=== PATIENT | male | born 1985 | race Two or more races ===

== ENCOUNTER 2018-12-21 02:40 | Inpatient (IN) | payer OTHER ==
[~2018-12-21] VITALS: Ht 170.2 cm; Wt 124.7 kg
[2018-12-21] MEDS ORDERED: ATEN25TA PO (02:50)
--- NOTE | 2018-12-21 03:07 | NUR ---
DR. COOPER AT BEDSIDE FOR MSE.
[2018-12-21 03:43] LABS: BASOPHILS # (AUTO) 0.2 K/uL (0.0-8.0); BASOPHILS % (AUTO) 1.1 % (0.0-2.0); EOSINOPHILS # (AUTO) 0.1 K/uL (0.0-0.7); EOSINOPHILS % (AUTO) 0.8 % (0.0-7.0); HEMATOCRIT 38.2 % (36.7-47.1); HEMOGLOBIN 13.4 g/dL (12.5-16.3); LYMPHOCYTES # (AUTO) 2.4 K/uL (20.0-40.0); LYMPHOCYTES % (AUTO) 16.1 % (20.5-51.5); MEAN CORPUSCULAR HEMOGLOBIN 35.8 uug (23.8-33.4); MEAN CORPUSCULAR HGB CONC 35 g/dL (32.5-36.3); MEAN CORPUSCULAR VOLUME 102.5 fL (73.0-96.2); MONOCYTES # (AUTO) 1.6 K/uL (2.0-10.0); MONOCYTES % (AUTO) 10.4 % (0.0-11.0); NEUTROPHILS # (AUTO) 10.7 K/uL (1.8-8.9); NEUTROPHILS % (AUTO) 71.6 % (38.5-71.5); PLATELET COUNT (AUTO) 144 K/uL (152-348); RED BLOOD CELL COUNT(AUTO) 3.73 MIL/uL (4.06-5.63); WHITE BLOOD COUNT (AUTO) 14.9 K/uL (3.6-10.2)
[2018-12-21 03:51] LABS: POTASSIUM 4.6 mmol/L (3.5-5.1)
[2018-12-21 03:57] LABS: BILIRUBIN,DIRECT 0.8 mg/dL (0.0-0.2); BILIRUBIN,TOTAL 2.3 mg/dL (0.2-1.0); TOTAL PROTEIN, SERUM 7.8 g/dL (6.4-8.2)
[2018-12-21 03:57] LABS: *OCCULT BLOOD STOOL POSITIVE (NEGATIVE)
--- NOTE | 2018-12-21 03:59 | NUR ---
Dr. Hurst () paged at this time, awaiting call back. Addendum: 12/21/18 at [id number] Zimmer
--- NOTE | 2018-12-21 04:32 | NUR ---
Called epic, will page Dr. Natali HOGAN) again. Addendum: 12/21/18 at [id number] Zimmer
--- NOTE | 2018-12-21 04:55 | NUR ---
Artur called, Andres Lima was paged.
--- NOTE | 2018-12-21 05:15 | NUR ---
Andres Lima is speaking with Dr. Bello at this time, will try and get a hold of GI.
--- NOTE | 2018-12-21 06:26 | NUR ---
Called [facility], GI bone tender was paged.
[2018-12-21] MEDS ORDERED: PANTOPRAZOLE SODIUM IV 80 MG in IV DEXTROSE 5% 100 ML IV ONE (06:30)
[2018-12-21] MEDS ORDERED: PANTOPRAZOLE SODIUM 40 MG VIAL ONE ×2 (06:38→06:55)
[2018-12-21] MEDS ORDERED: PANTOPRAZOLE SODIUM IV 80 MG in IV DEXTROSE 5% 500 ML IV ONE (06:45)
[2018-12-21] MEDS ORDERED: PIPERACILLIN SODIUM/TAZOBACTAM 3.375 G in IV DEXTROSE 5% 50 ML IV ONE (07:00)
[2018-12-21] MEDS ORDERED: PIPERACILLIN/TAZOBACTAM/D5W 50 ML IV ONE (07:00)
--- NOTE | 2018-12-21 07:02 | NUR ---
report given to NUVIA Livingston
--- NOTE | 2018-12-21 07:22 | NUR ---
PATIENT IS AWAKE, ALERT, ORIENTED X4 IN NO DISTRESS.
[2018-12-21] MEDS ORDERED: IV NS 1000 ML 1,000 ML IV ONE (08:30)
[2018-12-21] MEDS ORDERED: ONDANSETRON 4 MG/2 ML VIAL IV ONE ×2 (09:00→11:56)
[2018-12-21] MEDS ORDERED: ONDANSETRON 4 MG/2 ML VIAL ONE (09:02)
--- NOTE | 2018-12-21 09:20 | NUR ---
BENITA RIOS AND DR CHAUDHARI NOTIFIED OF LACTIC ACID VALUE.
[2018-12-21] MEDS ORDERED: ACETAMINOPHEN 325 MG TABLET PO PRN (09:30)
[2018-12-21] MEDS ORDERED: Z GUARD REMEDY PASTE 57 GM TUBE TOP PRN (09:30)
[2018-12-21] MEDS ORDERED: MORPHINE SULFATE 2 MG/1 ML DISP.SYRIN IV PRN (09:30)
[2018-12-21] MEDS ORDERED: ONDANSETRON 4 MG/2 ML VIAL IV PRN (09:30)
[2018-12-21] MEDS ORDERED: MIDAZOLAM HCL 2 MG/2 ML VIAL ONE (09:37)
[2018-12-21] MEDS ORDERED: FENTANYL CITRATE 100 MCG/2 ML AMPUL ONE (09:38)
[2018-12-21] MEDS ORDERED: SUCCINYLCHOLINE CHLORIDE 200 MG/10 ML VIAL ONE (09:38)
[2018-12-21 09:45] VITALS: BP 146/81
[2018-12-21] MEDS: LORAZEPAM 2 MG/1 ML VIAL IV PRN ×2 (10:38→21:27)
--- NOTE | 2018-12-21 10:45 | NUR ---
Received pt. alert oriented x4 resting in bed. Pt.denies SOB/ difficulty breathing. Pt. denies pain or discomfort. IV in R AC 20 gauge intact patent hep lock. Safety measures in place. Ativan given per request of pt. for anxiety. Pt. to be taken downstairs by 2 nurses in [facility] for EGD by Dr. Zimmer. Pt. signed consent form. Will await return of pt.
[2018-12-21] MEDS ORDERED: METOCLOPRAMIDE HCL 10 MG/2 ML VIAL IV ONE (11:56)
[2018-12-21] MEDS ORDERED: PROPOFOL 200 MG/20 ML BOTTLE IV ONE (11:56)
[2018-12-21] MEDS ORDERED: SEVOFLURANE 250 ML BOTTLE IH ONE (11:56)
[2018-12-21] MEDS ORDERED: SUCCINYLCHOLINE CHLORIDE 200 MG/10 ML VIAL IV ONE (11:56)
[2018-12-21] MEDS ORDERED: LIDOCAINE-MPF 2% 5 ML VIAL IJ ONE (11:56)
[2018-12-21] MEDS: IV NS 1000 ML 1,000 ML IV PRN ×2 (13:48→21:01)
[2018-12-21] MEDS ORDERED: PIPERACILLIN SODIUM/TAZOBACTAM 3.375 G in IV DEXTROSE 5% 50 ML IV SCH (14:00)
[2018-12-21] MEDS ORDERED: PIPERACILLIN/TAZOBACTAM/D5W 3.375 G in IV DEXTROSE 5% 50 ML IV SCH (14:00)
--- NOTE | 2018-12-21 15:04 | NUR ---
Critical lab value for lactic acid 3.2. Dr. Gallo aware of critical lab value with no further orders. Will continue to monitor pt.
[2018-12-21 15:57] VITALS: BP 149/86
[2018-12-21] MEDS: ATENOLOL 25 MG TABLET PO SCH (16:37)
[2018-12-21] MEDS ORDERED: ZOLPIDEM 5 MG TABLET PO PRN (19:00)
[2018-12-21 20:02] VITALS: BP 144/77
[2018-12-21] MEDS: PANTOPRAZOLE SODIUM 40 MG VIAL IV SCH (20:32)
[2018-12-21] MEDS ORDERED: PANTOPRAZOLE SODIUM 40 MG VIAL IV SCH (21:00)
[2018-12-21] MEDS: PIPERACILLIN/TAZOBACTAM/D5W 3.375 G in IV DEXTROSE 5% 50 ML IV SCH (21:01)
[2018-12-22] MEDS: IV NS 1000 ML 1,000 ML IV PRN ×4 (01:10→21:27)
[2018-12-22 06:21] LABS: BASOPHILS # (AUTO) 0.1 K/uL (0.0-8.0); BASOPHILS % (AUTO) 0.8 % (0.0-2.0); EOSINOPHILS # (AUTO) 0.2 K/uL (0.0-0.7); EOSINOPHILS % (AUTO) 1.4 % (0.0-7.0); HEMATOCRIT 29.2 % (36.7-47.1); HEMOGLOBIN 10.1 g/dL (12.5-16.3); LYMPHOCYTES # (AUTO) 3.3 K/uL (20.0-40.0); LYMPHOCYTES % (AUTO) 24.2 % (20.5-51.5); MEAN CORPUSCULAR HEMOGLOBIN 35.8 uug (23.8-33.4); MEAN CORPUSCULAR HGB CONC 35 g/dL (32.5-36.3); MEAN CORPUSCULAR VOLUME 103.3 fL (73.0-96.2); MONOCYTES # (AUTO) 1.5 K/uL (2.0-10.0); MONOCYTES % (AUTO) 11.2 % (0.0-11.0); NEUTROPHILS # (AUTO) 8.6 K/uL (1.8-8.9); NEUTROPHILS % (AUTO) 62.4 % (38.5-71.5); PLATELET COUNT (AUTO) 110 K/uL (152-348); RED BLOOD CELL COUNT(AUTO) 2.83 MIL/uL (4.06-5.63); WHITE BLOOD COUNT (AUTO) 13.7 K/uL (3.6-10.2)
[2018-12-22 06:37] LABS: CREATININE 1.1 mg/dL (0.6-1.3); MAGNESIUM 1.7 mg/dL (1.8-2.4); PHOSPHOROUS 3.1 mg/dL (2.5-4.9); POTASSIUM 4.1 mmol/L (3.5-5.1)
[2018-12-22] MEDS: PIPERACILLIN/TAZOBACTAM/D5W 3.375 G in IV DEXTROSE 5% 50 ML IV SCH (06:51)
--- NOTE | 2018-12-22 07:35 | NUR ---
patient received lying in bed with mother at bedside. v/s stable and no signs of acute distress throughout shift. c/o of anxiety and insomnia, Ativan and Ambien administered, patient tolerated well. will continue to monitor and endorse care accordingly to morning nurse.
[2018-12-22 07:43] VITALS: BP 146/68
--- NOTE | 2018-12-22 07:44 | NUR ---
received pt. resting in bed alert oriented x4 with mother at bedside. Pt. denies pain or discomfort. Pt. denies SOB or difficulty breathing. Vital signs stable. IV antibiotics and IV fluids running. Pt. abdomen non tender to touch. Pt. states he has been passing gas. IV in R AC 20 gauge intact patent. Safety measures in place. Call light within reach. Will continue to monitor pt. and update pt. on plan of care.
[2018-12-22] MEDS: ATENOLOL 25 MG TABLET PO SCH ×2 (08:00→16:51)
[2018-12-22] MEDS ORDERED: MAGNESIUM SULFATE/D5W 100 ML IV SCH (08:30)
[2018-12-22] MEDS: MULTIVITAMINS,THERAPEUTIC TABLET PO SCH (09:11)
[2018-12-22] MEDS: THIAMINE HCL 100 MG TABLET PO SCH (09:11)
[2018-12-22] MEDS: FOLIC ACID 1 MG TABLET PO SCH (09:11)
[2018-12-22] MEDS: OCTREOTIDE ACETATE DRIP 1,250 MCG in IV NORMAL SALINE 247.5 ML IV PRN (10:22)
[2018-12-22] MEDS: PANTOPRAZOLE SODIUM 40 MG VIAL IV SCH ×2 (10:22→21:24)
[2018-12-22 10:34] VITALS: BP 121/81
[2018-12-22] MEDS ORDERED: CEFTRIAXONE 1 G in IV DEXTROSE 5% 50 ML IV SCH (14:00)
[2018-12-22] MEDS: CEFTRIAXONE 2 G in IV DEXTROSE 5% 100 ML IV SCH (15:06)
[2018-12-22 15:19] VITALS: BP 131/75
--- NOTE | 2018-12-22 18:38 | NUR ---
pt. resting in bed alert oriented x4. Pt. ambulated around unit to aid in passing gas. Pt. denies pain but feels as if he needs to burp. Pt. denies SOB or difficulty breathing. Vital signs stable. New IV in L hand 20 gauge intact patent running fluids as previous IV was removed by accident by pt. Pt. abdomen non tender to touch. Pt. states he has been passing gas. Safety measures in place. Call light within reach. Will continue to monitor pt. and endorse to PM nurse
[2018-12-22 19:30] VITALS: BP 128/60
[2018-12-22] MEDS: LORAZEPAM 2 MG/1 ML VIAL IV PRN (21:25)
[2018-12-23 05:05] VITALS: BP 109/56
--- NOTE | 2018-12-23 05:07 | NUR ---
patient received lying in bed. a/o x4. v/s and no signs of acute distress throughout shift. c/o of anxiety and administered Ativan once. patient denies pain. safety and comfort measures provided at all times. will continue plan of care and endorse to morning shift.
[2018-12-23 06:23] LABS: BASOPHILS # (AUTO) 0.1 K/uL (0.0-8.0); EOSINOPHILS # (AUTO) 0.5 K/uL (0.0-0.7); EOSINOPHILS % (AUTO) 4.3 % (0.0-7.0); HEMATOCRIT 26.2 % (36.7-47.1); HEMOGLOBIN 9.1 g/dL (12.5-16.3); LYMPHOCYTES # (AUTO) 2.7 K/uL (20.0-40.0); LYMPHOCYTES % (AUTO) 24.2 % (20.5-51.5); MEAN CORPUSCULAR HGB CONC 35 g/dL (32.5-36.3); MEAN CORPUSCULAR VOLUME 106.2 fL (73.0-96.2); MONOCYTES # (AUTO) 1.2 K/uL (2.0-10.0); MONOCYTES % (AUTO) 10.8 % (0.0-11.0); NEUTROPHILS # (AUTO) 6.7 K/uL (1.8-8.9); NEUTROPHILS % (AUTO) 59.7 % (38.5-71.5); PLATELET COUNT (AUTO) 95 K/uL (152-348); WHITE BLOOD COUNT (AUTO) 11.2 K/uL (3.6-10.2)
[2018-12-23 06:36] LABS: RED BLOOD CELL COUNT(AUTO) 2.46 MIL/uL (4.06-5.63)
[2018-12-23 07:13] LABS: BILIRUBIN,TOTAL 1.1 mg/dL (0.2-1.0); MAGNESIUM 1.9 mg/dL (1.8-2.4); POTASSIUM 3.7 mmol/L (3.5-5.1); TOTAL PROTEIN, SERUM 5.8 g/dL (6.4-8.2)
[2018-12-23 07:14] LABS: EOSINOPHILS % (MANUAL) 6 % (0-8); LYMPHOCYTES % (MANUAL) 26 % (20-40); MONOCYTES % (MANUAL) 9 % (2-10); NEUTROPHILS % (MANUAL) 59 % (42-75)
--- NOTE | 2018-12-23 07:58 | NUR ---
received pt. resting in bed alert oriented x4. Pt. denies pain or discomfort. Pt. denies SOB or difficulty breathing. Vital signs stable. Pt. abdomen non tender to touch. IV in L hand 20 gauge intact patent. Safety measures in place. Call light within reach. Will continue to monitor pt. and update pt. on plan of care.
[2018-12-23] MEDS: ATENOLOL 25 MG TABLET PO SCH ×2 (08:35→16:58)
[2018-12-23] MEDS: THIAMINE HCL 100 MG TABLET PO SCH (08:35)
[2018-12-23] MEDS: MULTIVITAMINS,THERAPEUTIC TABLET PO SCH (08:35)
[2018-12-23] MEDS: OCTREOTIDE ACETATE DRIP 1,250 MCG in IV NORMAL SALINE 247.5 ML IV PRN (08:35)
[2018-12-23] MEDS: FOLIC ACID 1 MG TABLET PO SCH (08:35)
[2018-12-23 11:27] VITALS: BP 123/73
[2018-12-23] MEDS: PANTOPRAZOLE SODIUM 40 MG VIAL IV SCH ×2 (12:39→21:23)
[2018-12-23] MEDS: CEFTRIAXONE 2 G in IV DEXTROSE 5% 100 ML IV SCH (13:23)
[2018-12-23 15:23] VITALS: BP 121/77
[2018-12-23 20:00] VITALS: BP 137/78
[2018-12-23] MEDS: LORAZEPAM 2 MG/1 ML VIAL IV PRN (21:23)
[2018-12-24 04:55] VITALS: BP 111/62
[2018-12-24 08:00] VITALS: BP 125/80
[2018-12-24] MEDS: OCTREOTIDE ACETATE DRIP 1,250 MCG in IV NORMAL SALINE 247.5 ML IV PRN (08:31)
[2018-12-24] MEDS: THIAMINE HCL 100 MG TABLET PO SCH (08:58)
[2018-12-24] MEDS: MULTIVITAMINS,THERAPEUTIC TABLET PO SCH (08:58)
[2018-12-24] MEDS: FOLIC ACID 1 MG TABLET PO SCH (08:58)
[2018-12-24] MEDS: ATENOLOL 25 MG TABLET PO SCH (09:02)
[2018-12-24 10:21] LABS: EOSINOPHILS # (AUTO) 0.4 K/uL (0.0-0.7); HEMATOCRIT 26.4 % (36.7-47.1); HEMOGLOBIN 9.3 g/dL (12.5-16.3); LYMPHOCYTES # (AUTO) 1.6 K/uL (20.0-40.0); MONOCYTES # (AUTO) 0.8 K/uL (2.0-10.0)
[2018-12-24 10:37] LABS: BASOPHILS # (AUTO) 0.1 K/uL (0.0-8.0); EOSINOPHILS % (AUTO) 4.7 % (0.0-7.0); LYMPHOCYTES % (AUTO) 20.6 % (20.5-51.5); MEAN CORPUSCULAR HEMOGLOBIN 37.1 uug (23.8-33.4); MEAN CORPUSCULAR HGB CONC 35 g/dL (32.5-36.3); MEAN CORPUSCULAR VOLUME 105.6 fL (73.0-96.2); MONOCYTES % (AUTO) 10.2 % (0.0-11.0); NEUTROPHILS # (AUTO) 4.9 K/uL (1.8-8.9); NEUTROPHILS % (AUTO) 63.5 % (38.5-71.5)
[2018-12-24 10:38] LABS: PLATELET COUNT (AUTO) 97 K/uL (152-348); WHITE BLOOD COUNT (AUTO) 7.7 K/uL (3.6-10.2)
[2018-12-24 10:58] LABS: NEUTROPHILS % (MANUAL) 71 % (42-75)
[2018-12-24 10:59] LABS: BASOPHILS % (MANUAL) 1 % (0-2); EOSINOPHILS % (MANUAL) 4 % (0-8); LYMPHOCYTES % (MANUAL) 15 % (20-40); MONOCYTES % (MANUAL) 9 % (2-10)
[2018-12-24 11:45] VITALS: BP 120/56
[2018-12-24] MEDS: PANTOPRAZOLE SODIUM 40 MG VIAL IV SCH (13:54)
[2018-12-24] MEDS: CEFTRIAXONE 2 G in IV DEXTROSE 5% 100 ML IV SCH (14:06)
[2018-12-24 16:06] VITALS: BP 125/72
--- NOTE | 2018-12-24 16:40 | NUR ---
Patient discharge instructions given. Patient intravenous site discontinued. Clean, dry, intact catheter tip noted. No drainage, edema, discoloration, pain, or symptoms related to infection present. Patient verbalizes understanding of teaching. The patient will transport home via private automobile at this time. Mandeep Covarrubias RN
== END 2018-12-24 16:45 | disposition home or self-care (01) | DRG 441 ==
LOC: ER 02:53 → TELE3 08:38 → MEDSURG3 09:30
PROVIDERS: ADMIT Nurse Practitioner Acute Care; ATTEND Nurse Practitioner Acute Care
PROC: 06L38CZ Occlusion of Esophageal Vein with Extraluminal Device, Via Natural or Artificial Opening Endoscopic (ICD-10-PCS; principal; 2018-12-21)
DX: K76.6 Portal hypertension (principal); I85.11 Secondary esophageal varices with bleeding; A41.9 Sepsis, unspecified organism; D62 Acute posthemorrhagic anemia; Z68.41 Body mass index [BMI] 40.0-44.9, adult; E44.0 Moderate protein-calorie malnutrition; E87.2 Acidosis; K31.89 Other diseases of stomach and duodenum; K25.9 Gastric ulcer, unspecified as acute or chronic, without hemorrhage or perforation; K70.9 Alcoholic liver disease, unspecified; F10.20 Alcohol dependence, uncomplicated; Y90.9 Presence of alcohol in blood, level not specified; E66.01 Morbid (severe) obesity due to excess calories; D75.89 Other specified diseases of blood and blood-forming organs; Z82.49 Family history of ischemic heart disease and other diseases of the circulatory system; Z79.899 Other long term (current) drug therapy; I10 Essential (primary) hypertension; F41.9 Anxiety disorder, unspecified
CPT/HCPCS: 36415; 70030-TC; 71045; 83605; 83690; 83735; 84100; 84443; 85025; 85730; 86850; 86900; 86901; A4217; A4663; C9113; G0378; J0330; J0696; J2060; J2250; J2354; J2405; J2543; J2765; J3010; J3475; J3490; J7030; J7050; J7060